=== PATIENT | male | born 1980 | race Caucasian/White ===

== ENCOUNTER → 2021-05-15 | Outpatient (CLI) | payer OTHER ==
--- NOTE | 2021-05-15 15:03 | Diagnostic Imaging Report ---
FOOT, LEFT, 3 VIEWS INDICATION: Left foot pain. COMPARISON: None available. TECHNIQUE: Three non-weightbearing views of foot were obtained. 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 No osseous erosions or features of metatarsal stress fracture. No features of osseous tarsal coalition. 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 IMPRESSION: 1. Large type II os navicularis could be a source of medial midfoot pain (painful os syndrome). 2. Mild degenerative arthritis at the first metatarsal head-hallux sesamoid articulation. Dictated by: Dictated on workstation # [id number]
== END ==
LOC: RAD 09:49
PROVIDERS: ATTEND Internal Medicine
DX: M19.072 Primary osteoarthritis, left ankle and foot (principal)
CPT/HCPCS: 73630